=== PATIENT | female | born 1945 | race Caucasian/White ===

== ENCOUNTER → 2025-01-19 | Outpatient (CLI) | payer MEDICARE, SELFPAY ==
--- NOTE | 2025-01-19 12:30 | XR_ITS ---
Examination: MRI lumbar spine without contrast Date and time of exam: January 19, 2025 1251 hours Comparison April 29, 2015 INDICATIONS: Lower back pain radiating to the right leg beginning one month ago Technique: Multiple MRI axial and sagittal sections lumbar spine. Sagittal T2-weighted images, TR 3500, TE 118 T1 weighted transverse sections, TR 688 T8.5, T2-weighted sagittal sections T1 weighted sagittal sections TR 621, TE 30 T2 axial sections, TR 4, 190, TE 84. Findings: Abnormal heterogeneous signal involving all visualized osseous structures Grade 1 anterolisthesis L5 on S1 No lumbar fracture Moderate lumbar spondylosis Diffuse lumbar disc desiccation Advanced disc narrowing L1-L2, L2-L3, L3-L4 L5-S1 4 mm central lumbar disc bulge contiguous with the right and left S1 nerve roots L4-L5 4 mm central lumbar disc bulge extending to the left foraminal region with mild left L4 ganglionic compression L3-L4 3 mm central lumbar disc bulge L2-L3 no disc protrusion L1-2 no disc protrusion IMPRESSION: Advanced degenerative disc disease L1-L2, L2-L3, L3-L4 L5-S1 4 mm central lumbar disc bulge contiguous with the right and left S1 nerve roots L4-L5 4 mm central lumbar disc bulge extending to the left foraminal region with mild left L4 ganglionic compression L3-L4 3 mm central lumbar disc bulge
== END | disposition home or self-care (01) ==
PROVIDERS: PCP Internal Medicine; Referring Provider Orthopaedic Surgery; Visit Provider Orthopaedic Surgery
DX: M51.369 Other intervertebral disc degeneration, lumbar region without mention of lumbar back pain or lower extremity pain (principal); M51.379 Other intervertebral disc degeneration, lumbosacral region without mention of lumbar back pain or lower extremity pain; G95.20 Unspecified cord compression
CPT/HCPCS: 72148